=== PATIENT | female | born 1945 | race Hispanic/Latino ===

== ENCOUNTER 2018-07-18 09:33 | Inpatient (IN) | payer MEDICARE | END 2018-07-30 17:55 | disposition home or self-care (01) | LOC: EDH 09:33 → EDHIP 09:34 → 3DH 10:36 | PROC: 02H633Z Insertion of Infusion Device into Right Atrium, Percutaneous Approach (ICD-10-PCS; principal; 2018-07-27 11:48) | PROC: 0JH63XZ Insertion of Tunneled Vascular Access Device into Chest Subcutaneous Tissue and Fascia, Percutaneous Approach (ICD-10-PCS; 2018-07-27 11:48) | PROC: 02HV33Z Insertion of Infusion Device into Superior Vena Cava, Percutaneous Approach (ICD-10-PCS; 2018-07-27 11:48) | DX: I13.2 Hypertensive heart and chronic kidney disease with heart failure and with stage 5 chronic kidney disease, or end stage renal disease (principal); N18.6 End stage renal disease; E11.22 Type 2 diabetes mellitus with diabetic chronic kidney disease; I42.9 Cardiomyopathy, unspecified; N18.9 Chronic kidney disease, unspecified; E11.21 Type 2 diabetes mellitus with diabetic nephropathy; E87.70 Fluid overload, unspecified; E11.51 Type 2 diabetes mellitus with diabetic peripheral angiopathy without gangrene ==

== ENCOUNTER → 2020-03-08 | Outpatient (CLI) | payer MEDICARE ==
[~2020-03-08] MED LIST: ASPI-556 PO; ATOR40TA71 PO; FERS325 PO; INSU100I21 SQ; INSU100I3 SQ; ISOS30TA6 PO; LEVO100T12 PO; METO10TA41 PO; METO25TA6 PO; ONDA4TAB4 PO; PHOSLOC PO; SODI650T PO; SOTA80TA PO; TRAM50TA4 PO; TYL3 PO; VIT-7 PO; WARF4TAB41 PO
== END | disposition home or self-care (01) ==
LOC: SHCH 15:49
PROVIDERS: ATTEND Internal Medicine Cardiovascular Disease
DX: I42.9 Cardiomyopathy, unspecified (principal)
CPT/HCPCS: 93306; 93356

== ENCOUNTER → 2023-11-22 | Outpatient (CLI) | payer MEDICARE ==
[~2023-11-22] MED LIST changes: +AEC81 PO; +AMLO-258 PO; +APIX2.5T PO; -ASPI-556 PO; +ATOR40TA69 PO; -ATOR40TA71 PO; +CALC667T8 PO; +CHOL100020 PO; +FENO43CA8 PO; -FERS325 PO; +FOLI1TAB85 PO; +ICOS1CAP PO; -INSU100I21 SQ; +INSU100V12 SQ; +ISOS20TA85 PO; -ISOS30TA6 PO; -LEVO100T12 PO; +LEVO125C4 PO; +LOSA50TA64 PO; -METO10TA41 PO; -ONDA4TAB4 PO; -PHOSLOC PO; -SODI650T PO; -SOTA80TA PO; -TRAM50TA4 PO; -TYL3 PO; -VIT-7 PO; -WARF4TAB41 PO
[2023-11-22 12:59] LABS: BASOPHILS # (AUTO) 0.04 K/uL (0.00-0.20); BASOPHILS % (AUTO) 0.5 % (0.0-5.0); EOSINOPHILS # (AUTO) 0.06 K/uL (0.00-0.70); EOSINOPHILS % (AUTO) 0.7 % (0.0-8.0); HEMATOCRIT 34.1 % (36-48); IMMATURE GRANULOCYTE ABSOLUTE 0.04 K/uL (0-1); LYMPHOCYTES % (AUTO) 12.2 % (21.0-51.0); MEAN CORPUSCULAR HEMOGLOBIN 28.5 pg (27.0-33.0); MEAN CORPUSCULAR HGB CONC 29.9 g/dL (32.0-36.0); MEAN CORPUSCULAR VOLUME 95.3 fL (79-99); MONOCYTES # (AUTO) 0.5 K/uL (0.1-1.0); MONOCYTES % (AUTO) 5.6 % (3.0-13.0); NEUTROPHILS # (AUTO) 6.6 K/uL (1.8-7.7); NEUTROPHILS % (AUTO) 80.5 % (40.0-77.0); PLATELET COUNT (AUTO) 120 K/uL (130-400); RED BLOOD CELL COUNT(AUTO) 3.58 MIL/uL (4.00-5.50); RED CELL DISTRIBUTION WIDTH 18.2 % (11.0-15.5); WHITE BLOOD COUNT (AUTO) 8.2 K/uL (4.8-10.8)
[2023-11-22 13:02] LABS: CREATININE 4.7 mg/dL (0.5-1.0); POTASSIUM 4.5 mmol/L (3.5-5.1)
== END | disposition home or self-care (01) ==
LOC: LAB 11:01
PROVIDERS: ATTEND Internal Medicine Cardiovascular Disease
DX: I10 Essential (primary) hypertension (principal); E78.5 Hyperlipidemia, unspecified; I48.91 Unspecified atrial fibrillation; Z79.01 Long term (current) use of anticoagulants
CPT/HCPCS: 36415; 80048; 85025

== ENCOUNTER 2023-12-15 11:33 | Emergency (ER) | payer MEDICARE ==
[~2023-12-15] VITALS: Ht 157.5 cm; Wt 84.8 kg
[~2023-12-15 11:33] MED LIST changes: -AMLO-258 PO; -LEVO125C4 PO; +LOSA-417 PO; -LOSA50TA64 PO; -METO25TA6 PO; +METO50 PO; +Nitroglycerin 0.4MG Sl Tab SL
[2023-12-15 11:47] VITALS: BP 110/67; PULSE 87; RESP 18
[2023-12-15] MEDS ORDERED: DOCU-116 PO (12:29)
[2023-12-15] MEDS ORDERED: POLY17PO4 PO (12:29)
[2023-12-15] MEDS ORDERED: PHEN26CR2 RC (12:29)
[2023-12-15] MEDS ORDERED: LIDOCAINE HCL 2% JELLY 5 ML TP SCH (12:30)
[2023-12-15] MEDS: HYDROcodone/acetaMINOPHEN 10/325 MG TAB PO ONE (12:40)
[2023-12-15] MEDS: LIDOCAINE HCL 2% JELLY 5 ML TP ONE (12:41)
== END 2023-12-15 13:07 | disposition home or self-care (01) ==
LOC: EDH 11:33
DX: K60.2 Anal fissure, unspecified (principal); E11.22 Type 2 diabetes mellitus with diabetic chronic kidney disease; I12.0 Hypertensive chronic kidney disease with stage 5 chronic kidney disease or end stage renal disease; N18.6 End stage renal disease; E78.00 Pure hypercholesterolemia, unspecified; Z79.01 Long term (current) use of anticoagulants; Z79.4 Long term (current) use of insulin; Z79.82 Long term (current) use of aspirin; Z79.899 Other long term (current) drug therapy; Z99.2 Dependence on renal dialysis
CPT/HCPCS: 82270

== ENCOUNTER 2024-01-05 16:52 | Observation (INO) | payer MEDICARE ==
[~2024-01-05] VITALS: Ht 152.4 cm; Wt 58.5 kg
[~2024-01-05 16:52] MED LIST changes: +DOCU-116 PO; +PHEN26CR2 RC; +POLY17PO4 PO
[2024-01-05 18:02] LABS: BASOPHILS # (AUTO) 0.02 K/uL (0.00-0.20); BASOPHILS % (AUTO) 0.3 % (0.0-5.0); EOSINOPHILS % (AUTO) 1.5 % (0.0-8.0); HEMATOCRIT 33.1 % (36-48); IMMATURE GRANULOCYTE ABSOLUTE 0.03 K/uL (0-1); LYMPHOCYTES # (AUTO) 1.9 K/uL (1.0-4.8); LYMPHOCYTES % (AUTO) 28.3 % (21.0-51.0); MEAN CORPUSCULAR HEMOGLOBIN 28.6 pg (27.0-33.0); MEAN CORPUSCULAR HGB CONC 32.3 g/dL (32.0-36.0); MEAN CORPUSCULAR VOLUME 88.5 fL (79-99); MONOCYTES # (AUTO) 0.5 K/uL (0.1-1.0); NEUTROPHILS # (AUTO) 4.1 K/uL (1.8-7.7); NEUTROPHILS % (AUTO) 61.4 % (40.0-77.0); PLATELET COUNT (AUTO) 76 K/uL (130-400); RED BLOOD CELL COUNT(AUTO) 3.74 MIL/uL (4.00-5.50); RED CELL DISTRIBUTION WIDTH 17.3 % (11.0-15.5); WHITE BLOOD COUNT (AUTO) 6.6 K/uL (4.8-10.8)
[2024-01-05 18:11] LABS: CREATININE 3.8 mg/dL (0.5-1.0); POTASSIUM 3.8 mmol/L (3.5-5.1)
[2024-01-05 18:15] LABS: ALBUMIN 2.6 g/dL (3.5-5.0); BILIRUBIN,TOTAL 0.5 mg/dL (0.2-1.0); TOTAL PROTEIN, SERUM 5.2 g/dL (6.0-8.3)
[2024-01-05] MEDS: morPHINE 2 MG SYG IVP ONE (18:24)
[2024-01-05] MEDS: HEMORRHOIDAL OINTMENT 57 GM CREAM.GM. RC PRN (20:17)
[2024-01-05] MEDS: morPHINE 2 MG SYG IVP PRN (22:30)
[2024-01-05] MEDS ORDERED: ATOR40TA71 PO (23:51)
[2024-01-05] MEDS ORDERED: SOTA80TA PO (23:51)
[2024-01-05] MEDS ORDERED: HYDR25SU11 RC (23:51)
[2024-01-05] MEDS ORDERED: PANT40TA54 PO (23:51)
[2024-01-05] MEDS ORDERED: ICOS1CAP PO (23:51)
[2024-01-05] MEDS ORDERED: METO25TA6 PO (23:51)
[2024-01-05 23:53] VITALS: BP 122/54; PULSE 69; RESP 20; TEMP 97.5
[2024-01-05] MEDS ORDERED: INSU100I3 SQ (23:53)
[2024-01-06] VITALS (24 sets, daily range): BP systolic 87–163; BP diastolic 45–84; PULSE 65–87; RESP 16–20; TEMP 97.7–98.3; O2SAT 99
[2024-01-06] MEDS ORDERED: ondanSETRON 4MG INJ IVP PRN (01:00)
[2024-01-06] MEDS: morPHINE 2 MG SYG IVP ONE (01:08)
[2024-01-06 04:45] LABS: BASOPHILS # (AUTO) 0.03 K/uL (0.00-0.20); BASOPHILS % (AUTO) 0.5 % (0.0-5.0); EOSINOPHILS # (AUTO) 0.14 K/uL (0.00-0.70); EOSINOPHILS % (AUTO) 2.3 % (0.0-8.0); HEMATOCRIT 32.4 % (36-48); IMMATURE GRANULOCYTE ABSOLUTE 0.03 K/uL (0-1); LYMPHOCYTES # (AUTO) 1.7 K/uL (1.0-4.8); LYMPHOCYTES % (AUTO) 28.2 % (21.0-51.0); MEAN CORPUSCULAR HEMOGLOBIN 28.5 pg (27.0-33.0); MEAN CORPUSCULAR HGB CONC 31.5 g/dL (32.0-36.0); MEAN CORPUSCULAR VOLUME 90.5 fL (79-99); MONOCYTES # (AUTO) 0.5 K/uL (0.1-1.0); MONOCYTES % (AUTO) 7.6 % (3.0-13.0); NEUTROPHILS # (AUTO) 3.8 K/uL (1.8-7.7); NEUTROPHILS % (AUTO) 60.9 % (40.0-77.0); PLATELET COUNT (AUTO) 79 K/uL (130-400); RED BLOOD CELL COUNT(AUTO) 3.58 MIL/uL (4.00-5.50); RED CELL DISTRIBUTION WIDTH 17.2 % (11.0-15.5); WHITE BLOOD COUNT (AUTO) 6.2 K/uL (4.8-10.8)
[2024-01-06 04:51] LABS: ALBUMIN 2.5 g/dL (3.5-5.0); BILIRUBIN,TOTAL 0.6 mg/dL (0.2-1.0); CREATININE 4.2 mg/dL (0.5-1.0); MAGNESIUM 1.9 mg/dL (1.80-2.40); POTASSIUM 4.3 mmol/L (3.5-5.1)
[2024-01-06 04:54] LABS: INR 1.21 (0.85-1.15); PROTHROMBIN TIME 12.9 SEC (9.6-11.6)
[2024-01-06 04:55] LABS: PARTIAL THROMBOPLASTIN TIME 34.2 SEC (26.3-35.5)
[2024-01-06] MEDS: PANTOPrazole 40 MG/VIAL IVP SCH (09:20)
[2024-01-06] MEDS ORDERED: HYDR25SU7 RC (11:50)
[2024-01-06] MEDS: LIDOCAINE/PRILOCAINE CREAM 5GM TUBE TP ONE (13:40)
[2024-01-06] MEDS: 0.9%NACL 1000ML 1,000 ML IV SCH (13:41)
[2024-01-06] MEDS: ALBUMIN (HUMAN) 25% 50 ML IV.SOLN. IV SCH (14:30)
[2024-01-06] MEDS ORDERED: LoSARTan 50 MG TABLET PO SCH (21:00)
[2024-01-06] MEDS ORDERED: FENOFIBRATE MICRONIZED PO SCH (21:00)
[2024-01-06] MEDS ORDERED: INSULIN GLARgine 100 UNITS/ML 10 ML VIAL SQ SCH (21:00)
[2024-01-06] MEDS ORDERED: hydroCORTISONE 25 MG SUPPOSITORY PR SCH (21:00)
[2024-01-06] MEDS ORDERED: atorVAStatin 40 MG TABLET PO SCH (21:00)
[2024-01-06] MEDS ORDERED: FISH OIL 1000 MG/CAP PO SCH (21:00)
[2024-01-06] MEDS ORDERED: metoPROLOL tartRATE 25 MG TAB PO SCH (21:00)
[2024-01-07 04:55] LABS: HEPATITIS B SURFACE ANTIBODY Positive (Reactive)
[2024-01-07 04:56] LABS: HEPATITIS B CORE AB TOTAL Non-Reactive (Nonreactive); HEPATITIS B SURFACE ANTIGEN Non-Reactive (Nonreactive)
[2024-01-07] MEDS ORDERED: Vitamin B Complex/Vit C/Folic Acid PO SCH (08:00)
[2024-01-07] MEDS ORDERED: ISOSORBIDE MONONITRATE 20 MG TABLET PO SCH (09:00)
[2024-01-07] MEDS ORDERED: soTALol HCL 80 MG TABLET PO SCH (09:00)
[2024-01-07] MEDS ORDERED: CHOLECALCIFEROL 25 MCG PO SCH (09:00)
== END 2024-01-06 20:35 | disposition home or self-care, planned readmission (81) ==
LOC: EDH 16:52 → INTOOBSV 21:24 → EDHIP 21:24 → 4AH 23:53
PROVIDERS: ADMIT Internal Medicine; ATTEND Internal Medicine
DX: K60.2 Anal fissure, unspecified (principal); E43 Unspecified severe protein-calorie malnutrition; I13.2 Hypertensive heart and chronic kidney disease with heart failure and with stage 5 chronic kidney disease, or end stage renal disease; E11.22 Type 2 diabetes mellitus with diabetic chronic kidney disease; N18.6 End stage renal disease; I50.32 Chronic diastolic (congestive) heart failure; D63.1 Anemia in chronic kidney disease; E87.1 Hypo-osmolality and hyponatremia; K64.8 Other hemorrhoids; K92.2 Gastrointestinal hemorrhage, unspecified; D68.69 Other thrombophilia; D69.6 Thrombocytopenia, unspecified; R41.82 Altered mental status, unspecified; I25.10 Atherosclerotic heart disease of native coronary artery without angina pectoris; E78.00 Pure hypercholesterolemia, unspecified; I48.0 Paroxysmal atrial fibrillation; E03.9 Hypothyroidism, unspecified; Z99.2 Dependence on renal dialysis; Z95.1 Presence of aortocoronary bypass graft; Z90.49 Acquired absence of other specified parts of digestive tract; Z79.4 Long term (current) use of insulin; Z79.82 Long term (current) use of aspirin; Z89.511 Acquired absence of right leg below knee; Z79.01 Long term (current) use of anticoagulants; Z68.25 Body mass index [BMI] 25.0-25.9, adult; Z79.899 Other long term (current) drug therapy; Z86.2 Personal history of diseases of the blood and blood-forming organs and certain disorders involving the immune mechanism
CPT/HCPCS: 96374; 96376 ×2; 99284; 80053 ×2; 85025 ×2; 82270; 36415 ×2; 96361; 96375; 83735; 85610; 85730; 82948 ×3; 86706; 87340; 86704; 90935; J2270 ×4; G0378 ×3; J2470; G0257; J3490

== ENCOUNTER 2024-01-12 15:23 | Emergency (ER) | payer MEDICARE ==
[~2024-01-12] VITALS: Ht 152.4 cm; Wt 63.5 kg
[~2024-01-12 15:23] MED LIST changes: -AEC81 PO; -ATOR40TA69 PO; +ATOR40TA71 PO; -CALC667T8 PO; -DOCU-116 PO; +HYDR25SU11 RC; +HYDR25SU7 RC; +METO25TA6 PO; -METO50 PO; -Nitroglycerin 0.4MG Sl Tab SL; +PANT40TA54 PO; -PHEN26CR2 RC; -POLY17PO4 PO; +SOTA80TA PO
[2024-01-12 15:25] VITALS: BP 145/70; PULSE 87; RESP 20
[2024-01-12] MEDS: acetaMINOPHEN WITH coDEINE 1 TAB TAB PO ONE (16:01)
[2024-01-12 16:17] LABS: BASOPHILS # (AUTO) 0.03 K/uL (0.00-0.20); BASOPHILS % (AUTO) 0.4 % (0.0-5.0); EOSINOPHILS # (AUTO) 0.03 K/uL (0.00-0.70); EOSINOPHILS % (AUTO) 0.4 % (0.0-8.0); HEMATOCRIT 39.1 % (36-48); IMMATURE GRANULOCYTE ABSOLUTE 0.06 K/uL (0-1); LYMPHOCYTES # (AUTO) 1.8 K/uL (1.0-4.8); LYMPHOCYTES % (AUTO) 24.2 % (21.0-51.0); MEAN CORPUSCULAR HEMOGLOBIN 28.5 pg (27.0-33.0); MEAN CORPUSCULAR HGB CONC 31.7 g/dL (32.0-36.0); MEAN CORPUSCULAR VOLUME 89.9 fL (79-99); MONOCYTES # (AUTO) 0.5 K/uL (0.1-1.0); MONOCYTES % (AUTO) 7.3 % (3.0-13.0); NEUTROPHILS % (AUTO) 66.9 % (40.0-77.0); PLATELET COUNT (AUTO) 123 K/uL (130-400); RED BLOOD CELL COUNT(AUTO) 4.35 MIL/uL (4.00-5.50); RED CELL DISTRIBUTION WIDTH 17.3 % (11.0-15.5); WHITE BLOOD COUNT (AUTO) 7.4 K/uL (4.8-10.8)
[2024-01-12 16:30] LABS: CREATININE 3.6 mg/dL (0.5-1.0); POTASSIUM 4.2 mmol/L (3.5-5.1)
[2024-01-12 17:08] LABS: APPEARANCE,URINE TURBID (CLEAR); BILIRUBIN,URINE NEGATIVE (NEGATIVE); COLOR,URINE ORANGE (YELLOW); GLUCOSE, URINE (UA) NEGATIVE (NEGATIVE); KETONES,URINE NEGATIVE (NEGATIVE); LEUKOCYTE ESTERASE ,URINE 500 Leu/uL (NEGATIVE); NITRATE,URINE NEGATIVE (NEGATIVE); OCCULT BLOOD,URINE SMALL (NEGATIVE); PROTEIN,URINE 600 mg/dL (NEGATIVE); UROBILINOGEN,URINE 0.2 mg/dL (0.2-1.0)
[2024-01-12 17:10] LABS: ADD UA MICROSCOPIC YES
[2024-01-12 17:12] LABS: BACTERIA,URINE MOD /HPF (None Seen); RBC,URINE 26-50 /HPF (0-1); SQUAMOUS EPITHELIAL CELL,UR FEW /HPF (0-2); UNCLASSIFIED CRYSTAL 2 /HPF (None Seen); WBC CLUMP RARE /HPF (0-1); WBC,URINE 51-100 /HPF (0-1)
[2024-01-12] MEDS: morPHINE 2 MG SYG IVP ONE (17:22)
[2024-01-12] MEDS: cefTRIAXone 1G VIAL IVPB ONE (17:22)
[2024-01-12] MEDS ORDERED: MACR100 PO (18:14)
== END 2024-01-12 20:00 | disposition home or self-care (01) ==
LOC: EDH 15:23
DX: N30.90 Cystitis, unspecified without hematuria (principal); I25.10 Atherosclerotic heart disease of native coronary artery without angina pectoris; I13.2 Hypertensive heart and chronic kidney disease with heart failure and with stage 5 chronic kidney disease, or end stage renal disease; E11.22 Type 2 diabetes mellitus with diabetic chronic kidney disease; E03.9 Hypothyroidism, unspecified; N18.6 End stage renal disease; E78.00 Pure hypercholesterolemia, unspecified; Z90.49 Acquired absence of other specified parts of digestive tract; Z99.2 Dependence on renal dialysis; Z79.01 Long term (current) use of anticoagulants; Z79.4 Long term (current) use of insulin; Z79.82 Long term (current) use of aspirin; Z79.899 Other long term (current) drug therapy; Z89.511 Acquired absence of right leg below knee; Z95.1 Presence of aortocoronary bypass graft; Z95.5 Presence of coronary angioplasty implant and graft
CPT/HCPCS: 99285; 74176; 96374; 96375; 80048; 85025; 87086 ×2; 87186; 81001; 36415; J2270; J0696